=== PATIENT | male | born 1965 | race Two or more races ===

== ENCOUNTER 2018-10-17 14:56 | Inpatient (IN) | payer SELFPAY ==
[~2018-10-17] VITALS: Ht 185.4 cm; Wt 73.9 kg
[2018-10-17 16:40] LABS: PLATELET COUNT 362 x10^3mcL (130-400)
[2018-10-17 16:50] LABS: RED CELL DISTRIBUTION WIDTH 15.3 % (11.5-14.5)
[2018-10-17 17:03] LABS: CALCIUM 8.6 mg/dL (8.5-10.1); CARBON DIOXIDE 28.1 mmol/L (21-32); POTASSIUM SERUM 3.3 mmol/L (3.5-5.1)
[2018-10-17 17:07] LABS: BILIRUBIN TOTAL 2.15 mg/dL (0.20-1.00); TOTAL PROTEIN, SERUM 6.9 g/dL (6.4-8.2)
[2018-10-17 17:11] LABS: ALBUMIN 2.4 g/dL (3.4-5.0)
[2018-10-17 17:14] LABS: BAND NEUTROPHIL 40 % (0-10); BASOPHIL 0 % (0-2); MONOCYTE 4 % (0-7); SEGMENTED NEUTROPHILS 54 % (37-75); rbc morphology (normal/abnorm) ABNORMAL (NORMAL)
[2018-10-17 17:15] LABS: PLATELET MORPHOLOGY PLATELETS NORMAL
[2018-10-17 18:50] LABS: PHOSPHOROUS 4.7 mg/dL (2.5-4.9)
[2018-10-17 18:55] LABS: CHOLESTEROL/HDL RATIO 8.9
[2018-10-17 18:59] LABS: FREE T4 1.93 ng/dL (0.76-1.46); FREE THYROXINE INDEX 3.7 ug/dL (1.4-4.5); T4(THYROXINE) 10.1 ug/dL (4.7-13.3)
[2018-10-17 19:35] LABS: T3 TOTAL 0.77 ng/mL
[2018-10-17 19:54] VITALS: BP 127/76
[2018-10-17 21:46] VITALS: BP 125/75
[2018-10-18 06:22] VITALS: BP 106/68
[2018-10-18 07:22] LABS: PLATELET COUNT 315 x10^3mcL (130-400)
[2018-10-18 07:42] LABS: CALCIUM 7.9 mg/dL (8.5-10.1); CARBON DIOXIDE 25.3 mmol/L (21-32); CREATININE SERUM 2.1 mg/dL (0.7-1.3); POTASSIUM SERUM 3.3 mmol/L (3.5-5.1)
[2018-10-18 08:50] VITALS: BP 98/61
[2018-10-18 08:53] LABS: RED CELL DISTRIBUTION WIDTH 15.5 % (11.5-14.5)
[2018-10-18 11:59] LABS: BAND NEUTROPHIL 7 % (0-10); BASOPHIL 0 % (0-2); MONOCYTE 1 % (0-7); SEGMENTED NEUTROPHILS 87 % (37-75); rbc morphology (normal/abnorm) ABNORMAL (NORMAL)
[2018-10-18 12:00] LABS: PLATELET MORPHOLOGY PLATELETS NORMAL; burr cell (echinocyte) 2+
[2018-10-18 12:58] VITALS: BP 103/63
[2018-10-18 13:20] LABS: UA SPECIFIC GRAVITY >=1.030 (1.005-1.035); microscopic required? YES; urine erythrocyte NEGATIVE (NEGATIVE)
[2018-10-18 13:39] LABS: AMPHETAMINE QUAL UR POSITIVE (See below)
[2018-10-18 16:47] VITALS: BP 113/64
[2018-10-18 22:18] VITALS: BP 132/76
[2018-10-19 05:21] VITALS: BP 140/83
[2018-10-19 06:40] LABS: PLATELET COUNT 318 x10^3mcL (130-400)
[2018-10-19 07:06] LABS: CALCIUM 7.6 mg/dL (8.5-10.1); CARBON DIOXIDE 25.6 mmol/L (21-32); MAGNESIUM 2.1 mg/dL (1.8-2.4); PHOSPHOROUS 3.3 mg/dL (2.5-4.9); POTASSIUM SERUM 3.7 mmol/L (3.5-5.1)
[2018-10-19 07:42] LABS: RED CELL DISTRIBUTION WIDTH 15.8 % (11.5-14.5)
[2018-10-19 09:41] VITALS: BP 148/87
[2018-10-19 11:47] LABS: BAND NEUTROPHIL 5 % (0-10); BASOPHIL 0 % (0-2); MONOCYTE 8 % (0-7); SEGMENTED NEUTROPHILS 81 % (37-75)
[2018-10-19 11:48] LABS: rbc morphology (normal/abnorm) ABNORMAL (NORMAL)
[2018-10-19 11:49] LABS: PLATELET MORPHOLOGY PLATELETS NORMAL
[2018-10-19 13:06] VITALS: BP 145/85
[2018-10-19 17:29] VITALS: BP 153/87
[2018-10-19 21:47] VITALS: BP 167/86
[2018-10-19 23:32] VITALS: BP 154/76
[2018-10-20 06:18] LABS: PLATELET COUNT 336 x10^3mcL (130-400)
[2018-10-20 06:23] VITALS: BP 186/104
[2018-10-20 06:44] LABS: CALCIUM 7.2 mg/dL (8.5-10.1); CARBON DIOXIDE 23.2 mmol/L (21-32); CHLORIDE SERUM 107 mmol/L (98-107); CREATININE SERUM 1.3 mg/dL (0.7-1.3); GFR1 > 60 mL/min; GLUCOSE SERUM 135 mg/dL (74-106); MAGNESIUM 1.8 mg/dL (1.8-2.4); PHOSPHOROUS 3.1 mg/dL (2.5-4.9); POTASSIUM SERUM 3.8 mmol/L (3.5-5.1); SODIUM SERUM 140 mmol/L (136-145)
[2018-10-20 08:56] LABS: RED CELL DISTRIBUTION WIDTH 16.4 % (11.5-14.5)
[2018-10-20 09:48] VITALS: BP 176/97
[2018-10-20 10:54] VITALS: BP 159/87
[2018-10-20 13:33] VITALS: BP 157/87
[2018-10-20 13:54] LABS: BAND NEUTROPHIL 1 % (0-10); BASOPHIL 0 % (0-2); MONOCYTE 3 % (0-7); SEGMENTED NEUTROPHILS 93 % (37-75)
[2018-10-20 13:55] LABS: PLATELET MORPHOLOGY PLATELETS NORMAL; rbc morphology (normal/abnorm) ABNORMAL (NORMAL)
[2018-10-20 16:56] VITALS: BP 159/96
[2018-10-20 21:13] VITALS: BP 144/89
[2018-10-21 05:57] VITALS: BP 158/83
[2018-10-21 06:18] LABS: PLATELET COUNT 341 x10^3mcL (130-400)
[2018-10-21 06:30] LABS: RED CELL DISTRIBUTION WIDTH 15.9 % (11.5-14.5)
[2018-10-21 06:51] LABS: ALKALINE PHOSPHATASE 494 U/L (46-116); ALT/SGPT 18 U/L (16-63); AST/SGOT 44 U/L (15-37); BILIRUBIN DIRECT 1.13 mg/dL (0.0-0.2); BILIRUBIN TOTAL 1.4 mg/dL (0.20-1.00); CALCIUM 7.9 mg/dL (8.5-10.1); CARBON DIOXIDE 23.2 mmol/L (21-32); CHLORIDE SERUM 101 mmol/L (98-107); CREATININE SERUM 1.3 mg/dL (0.7-1.3); GFR1 > 60 mL/min; GLUCOSE SERUM 89 mg/dL (74-106); POTASSIUM SERUM 3.8 mmol/L (3.5-5.1); SODIUM SERUM 133 mmol/L (136-145)
[2018-10-21 07:00] LABS: ALBUMIN 1.2 g/dL (3.4-5.0); TOTAL PROTEIN, SERUM 5.7 g/dL (6.4-8.2)
[2018-10-21 09:41] VITALS: BP 168/90
[2018-10-21 14:34] VITALS: BP 172/95
[2018-10-21 14:41] LABS: MONOCYTE 7 % (0-7); SEGMENTED NEUTROPHILS 82 % (37-75)
[2018-10-21 14:42] LABS: ATYPICAL LYMPH 3 %; BAND NEUTROPHIL 1 % (0-10); PLATELET MORPHOLOGY PLATELETS NORMAL; rbc morphology (normal/abnorm) ABNORMAL (NORMAL)
[2018-10-21 17:10] VITALS: BP 177/101
[2018-10-21 21:41] VITALS: BP 165/95
[2018-10-22 05:34] VITALS: BP 169/95
[2018-10-22 06:43] LABS: PLATELET COUNT 341 x10^3mcL (130-400)
[2018-10-22 06:44] LABS: CALCIUM 7.8 mg/dL (8.5-10.1); CARBON DIOXIDE 24.3 mmol/L (21-32); CHLORIDE SERUM 104 mmol/L (98-107); CREATININE SERUM 1.3 mg/dL (0.7-1.3); GFR1 > 60 mL/min; GLUCOSE SERUM 89 mg/dL (74-106); POTASSIUM SERUM 4.2 mmol/L (3.5-5.1); SODIUM SERUM 138 mmol/L (136-145)
[2018-10-22 06:46] LABS: RED CELL DISTRIBUTION WIDTH 16.3 % (11.5-14.5)
[2018-10-22 10:07] VITALS: BP 166/87
[2018-10-22 11:29] LABS: BAND NEUTROPHIL 9 % (0-10); BASOPHIL 0 % (0-2); MONOCYTE 4 % (0-7); SEGMENTED NEUTROPHILS 74 % (37-75)
[2018-10-22 11:30] LABS: rbc morphology (normal/abnorm) ABNORMAL (NORMAL); target cell (codocyte) 1+; tear drop cell (dacryocyte) 1+
[2018-10-22 11:31] LABS: PLATELET MORPHOLOGY GIANT PLATELET SEEN
[2018-10-22 14:13] VITALS: BP 178/93
[2018-10-22 17:35] VITALS: BP 125/78
[2018-10-22 21:30] VITALS: BP 183/94
[2018-10-22 22:32] VITALS: BP 178/76
[2018-10-23 05:38] VITALS: BP 162/81
[2018-10-23 06:10] LABS: PLATELET COUNT 330 x10^3mcL (130-400)
[2018-10-23 06:18] LABS: CALCIUM 7.5 mg/dL (8.5-10.1); CARBON DIOXIDE 25.1 mmol/L (21-32); CHLORIDE SERUM 101 mmol/L (98-107); CREATININE SERUM 1.2 mg/dL (0.7-1.3); GFR1 > 60 mL/min; GLUCOSE SERUM 89 mg/dL (74-106); POTASSIUM SERUM 4.3 mmol/L (3.5-5.1); SODIUM SERUM 133 mmol/L (136-145)
[2018-10-23 06:22] LABS: RED CELL DISTRIBUTION WIDTH 15.5 % (11.5-14.5); SEGMENTED NEUTROPHILS 70 % (37-75)
[2018-10-23 06:23] LABS: BAND NEUTROPHIL 10 % (0-10)
[2018-10-23 06:24] LABS: rbc morphology (normal/abnorm) NORMAL (NORMAL)
[2018-10-23 08:46] VITALS: BP 166/84
[2018-10-23 12:18] VITALS: BP 149/77
[2018-10-23 17:53] VITALS: BP 168/83
[2018-10-23 21:11] VITALS: BP 167/85
[2018-10-23 23:53] VITALS: BP 158/85
[2018-10-24 05:48] VITALS: BP 164/75
[2018-10-24 08:10] VITALS: BP 156/75
[2018-10-24 10:54] LABS: CALCIUM 7.4 mg/dL (8.5-10.1); CARBON DIOXIDE 27.2 mmol/L (21-32); CHLORIDE SERUM 99 mmol/L (98-107); CREATININE SERUM 1.2 mg/dL (0.7-1.3); GFR1 > 60 mL/min; GLUCOSE SERUM 167 mg/dL (74-106); POTASSIUM SERUM 4.3 mmol/L (3.5-5.1); SODIUM SERUM 131 mmol/L (136-145)
[2018-10-24 11:07] LABS: PLATELET COUNT 348 x10^3mcL (130-400)
[2018-10-24 11:08] LABS: RED CELL DISTRIBUTION WIDTH 15.8 % (11.5-14.5)
[2018-10-24 11:54] VITALS: BP 145/78
[2018-10-24 12:19] LABS: BAND NEUTROPHIL 8 % (0-10); BASOPHIL 0 % (0-2); METAMYELOCTE 1 % (0-2); MONOCYTE 4 % (0-7); PLATELET MORPHOLOGY PLATELETS INCREASED; SEGMENTED NEUTROPHILS 78 % (37-75); rbc morphology (normal/abnorm) ABNORMAL (NORMAL)
[2018-10-24 18:22] VITALS: BP 141/75
[2018-10-24 20:49] VITALS: BP 158/76
[2018-10-25 05:45] VITALS: BP 170/89
[2018-10-25 08:08] LABS: PLATELET COUNT 476 x10^3mcL (130-400); RED CELL DISTRIBUTION WIDTH 15.2 % (11.5-14.5)
[2018-10-25 08:11] VITALS: BP 145/80
[2018-10-25 08:16] LABS: CALCIUM 7.8 mg/dL (8.5-10.1); CARBON DIOXIDE 28.8 mmol/L (21-32); CHLORIDE SERUM 100 mmol/L (98-107); CREATININE SERUM 1.2 mg/dL (0.7-1.3); GFR1 > 60 mL/min; GLUCOSE SERUM 98 mg/dL (74-106); POTASSIUM SERUM 4.1 mmol/L (3.5-5.1); SODIUM SERUM 134 mmol/L (136-145)
[2018-10-25 12:56] VITALS: BP 115/79
[2018-10-25 13:34] LABS: BAND NEUTROPHIL 6 % (0-10); SEGMENTED NEUTROPHILS 76 % (37-75)
[2018-10-25 13:39] LABS: MONOCYTE 5 % (0-7)
[2018-10-25 13:40] LABS: rbc morphology (normal/abnorm) ABNORMAL (NORMAL)
[2018-10-25 13:41] LABS: PLATELET MORPHOLOGY PLATELETS INCREASED
[2018-10-25 17:22] VITALS: BP 121/70
[2018-10-25 20:55] VITALS: BP 125/73
[2018-10-26 05:44] VITALS: BP 148/84
[2018-10-26 13:27] VITALS: BP 149/81
[2018-10-26 16:39] VITALS: BP 135/75
[2018-10-26 20:47] VITALS: BP 141/78
[2018-10-27 05:57] LABS: BASOPHIL % 0.2 % (0-2)
[2018-10-27 06:03] VITALS: BP 145/62
[2018-10-27 06:19] LABS: CALCIUM 7.8 mg/dL (8.5-10.1); CARBON DIOXIDE 26.5 mmol/L (21-32); CHLORIDE SERUM 102 mmol/L (98-107); CREATININE SERUM 1.2 mg/dL (0.7-1.3); GFR1 > 60 mL/min; GLUCOSE SERUM 91 mg/dL (74-106); POTASSIUM SERUM 4.2 mmol/L (3.5-5.1); SODIUM SERUM 136 mmol/L (136-145)
[2018-10-27 09:59] LABS: RED CELL DISTRIBUTION WIDTH 15.7 % (11.5-14.5)
[2018-10-27 10:01] LABS: PLATELET COUNT 839 x10^3mcL (130-400)
[2018-10-27 10:04] VITALS: BP 125/63
[2018-10-27 14:00] VITALS: BP 125/76
[2018-10-27 17:50] VITALS: BP 131/73
[2018-10-27 21:36] VITALS: BP 131/78
[2018-10-28 05:39] VITALS: BP 128/87
[2018-10-28 07:05] LABS: CALCIUM 7.6 mg/dL (8.5-10.1); CARBON DIOXIDE 27.8 mmol/L (21-32); CHLORIDE SERUM 104 mmol/L (98-107); CREATININE SERUM 1.2 mg/dL (0.7-1.3); GFR1 > 60 mL/min; GLUCOSE SERUM 81 mg/dL (74-106); MAGNESIUM 1.9 mg/dL (1.8-2.4); PHOSPHOROUS 3.9 mg/dL (2.5-4.9); POTASSIUM SERUM 4.5 mmol/L (3.5-5.1); SODIUM SERUM 136 mmol/L (136-145)
[2018-10-28 07:08] LABS: BASOPHIL % 0.2 % (0-2)
[2018-10-28 08:19] VITALS: BP 129/65
[2018-10-28 08:23] LABS: RED CELL DISTRIBUTION WIDTH 14.6 % (11.5-14.5)
[2018-10-28 08:48] LABS: PLATELET COUNT 1017 x10^3mcL (130-400)
[2018-10-28 12:34] VITALS: BP 145/79
[2018-10-28 15:50] VITALS: BP 126/61
[2018-10-28 20:33] VITALS: BP 140/79
[2018-10-29 05:45] VITALS: BP 145/78
[2018-10-29 06:26] LABS: BASOPHIL % 0.7 % (0-2)
[2018-10-29 06:36] LABS: CALCIUM 7.5 mg/dL (8.5-10.1); CARBON DIOXIDE 27.5 mmol/L (21-32); CHLORIDE SERUM 102 mmol/L (98-107); CREATININE SERUM 1.2 mg/dL (0.7-1.3); GFR1 > 60 mL/min; GLUCOSE SERUM 74 mg/dL (74-106); POTASSIUM SERUM 4.2 mmol/L (3.5-5.1); SODIUM SERUM 134 mmol/L (136-145)
[2018-10-29 07:24] LABS: RED CELL DISTRIBUTION WIDTH 15.6 % (11.5-14.5)
[2018-10-29 07:26] LABS: PLATELET COUNT 1109 x10^3mcL (130-400)
[2018-10-29 07:52] VITALS: BP 127/75
[2018-10-29 11:29] VITALS: BP 141/79
[2018-10-29 15:32] VITALS: BP 142/81
[2018-10-29 21:11] VITALS: BP 149/84
[2018-10-30 05:45] VITALS: BP 146/74
[2018-10-30 07:14] LABS: CALCIUM 7.8 mg/dL (8.5-10.1); CARBON DIOXIDE 26.3 mmol/L (21-32); CHLORIDE SERUM 101 mmol/L (98-107); GFR1 > 60 mL/min; GLUCOSE SERUM 74 mg/dL (74-106); POTASSIUM SERUM 3.9 mmol/L (3.5-5.1); SODIUM SERUM 134 mmol/L (136-145)
[2018-10-30 07:43] LABS: BASOPHIL % 0.6 % (0-2)
[2018-10-30 07:44] LABS: RED CELL DISTRIBUTION WIDTH 15.7 % (11.5-14.5)
[2018-10-30 07:48] LABS: PLATELET COUNT 1189 x10^3mcL (130-400)
[2018-10-30 10:01] VITALS: BP 145/82
[2018-10-30 16:35] VITALS: BP 143/77
[2018-10-30 21:50] VITALS: BP 136/87
[2018-10-31 05:58] VITALS: BP 153/78
[2018-10-31 07:03] LABS: CALCIUM 7.9 mg/dL (8.5-10.1); CARBON DIOXIDE 26.2 mmol/L (21-32); CHLORIDE SERUM 101 mmol/L (98-107); CREATININE SERUM 1.2 mg/dL (0.7-1.3); GFR1 > 60 mL/min; GLUCOSE SERUM 108 mg/dL (74-106); SODIUM SERUM 133 mmol/L (136-145)
[2018-10-31 08:04] LABS: BASOPHIL % 2.5 % (0-2); RED CELL DISTRIBUTION WIDTH 15.9 % (11.5-14.5)
[2018-10-31 08:05] LABS: PLATELET COUNT 1157 x10^3mcL (130-400)
[2018-10-31 09:11] VITALS: BP 128/77
[2018-10-31 17:56] VITALS: BP 135/76
[2018-10-31 20:47] VITALS: BP 138/74
[2018-11-01 05:27] VITALS: BP 139/65
[2018-11-01 09:58] VITALS: BP 125/65
[2018-11-01 18:36] VITALS: BP 147/75
[2018-11-01 20:57] VITALS: BP 135/73
[2018-11-02 05:28] VITALS: BP 156/92
[2018-11-02 07:18] LABS: CARBON DIOXIDE 27.7 mmol/L (21-32); CHLORIDE SERUM 103 mmol/L (98-107); CREATININE SERUM 1.1 mg/dL (0.7-1.3); GFR1 > 60 mL/min; GLUCOSE SERUM 114 mg/dL (74-106); POTASSIUM SERUM 4.1 mmol/L (3.5-5.1); SODIUM SERUM 137 mmol/L (136-145)
[2018-11-02 07:32] LABS: BASOPHIL % 2.1 % (0-2); PLATELET COUNT 968 x10^3mcL (130-400)
[2018-11-02 09:42] VITALS: BP 147/87
[2018-11-02 16:48] VITALS: BP 138/78
[2018-11-02 20:31] VITALS: BP 147/77
[2018-11-03 05:07] VITALS: BP 146/73
[2018-11-03 06:24] LABS: CALCIUM 7.7 mg/dL (8.5-10.1); CHLORIDE SERUM 104 mmol/L (98-107); GFR1 > 60 mL/min; GLUCOSE SERUM 145 mg/dL (74-106); POTASSIUM SERUM 3.9 mmol/L (3.5-5.1); SODIUM SERUM 137 mmol/L (136-145)
[2018-11-03 07:31] LABS: RED CELL DISTRIBUTION WIDTH 16.2 % (11.5-14.5)
[2018-11-03 07:32] LABS: BASOPHIL % 2.4 % (0-2); PLATELET COUNT 839 x10^3mcL (130-400)
[2018-11-03 09:54] VITALS: BP 152/77
[2018-11-03 18:22] VITALS: BP 142/78
[2018-11-03 21:29] VITALS: BP 142/75
[2018-11-04 04:53] VITALS: BP 154/81
[2018-11-04 06:38] LABS: BASOPHIL % 1.1 % (0-2)
[2018-11-04 06:55] LABS: CALCIUM 7.7 mg/dL (8.5-10.1); CARBON DIOXIDE 26.7 mmol/L (21-32); CHLORIDE SERUM 104 mmol/L (98-107); CREATININE SERUM 1.1 mg/dL (0.7-1.3); GFR1 > 60 mL/min; GLUCOSE SERUM 128 mg/dL (74-106); POTASSIUM SERUM 3.7 mmol/L (3.5-5.1); SODIUM SERUM 137 mmol/L (136-145)
[2018-11-04 08:51] LABS: PLATELET COUNT 714 x10^3mcL (130-400)
[2018-11-04 09:57] VITALS: BP 146/85
[2018-11-04] MEDS ORDERED: METFORMIN HYDR500 M1 PO (11:56)
[2018-11-04] MEDS ORDERED: NOR10 PO (11:56)
[2018-11-04 12:53] VITALS: BP 146/85
[2018-11-04 14:02] VITALS: BP 156/98
[2018-11-04 17:39] VITALS: BP 148/82
== END 2018-11-04 18:47 | disposition home or self-care (01) | DRG 871 ==
LOC: ED 14:56 → DU 18:02 → MU 10-30 11:49
PROVIDERS: Emergency Medicine; Family Medicine; General Practice; Internal Medicine
PROC: 0X9K3ZZ Drainage of Left Hand, Percutaneous Approach (ICD-10-PCS; principal; 2018-10-17)
DX: A41.9 Sepsis, unspecified organism (principal); N17.0 Acute kidney failure with tubular necrosis; E43 Unspecified severe protein-calorie malnutrition; M72.6 Necrotizing fasciitis; E87.1 Hypo-osmolality and hyponatremia; L03.114 Cellulitis of left upper limb; L02.512 Cutaneous abscess of left hand; E11.621 Type 2 diabetes mellitus with foot ulcer; E87.6 Hypokalemia; L97.519 Non-pressure chronic ulcer of other part of right foot with unspecified severity; E11.36 Type 2 diabetes mellitus with diabetic cataract; D64.9 Anemia, unspecified; E11.42 Type 2 diabetes mellitus with diabetic polyneuropathy; N18.9 Chronic kidney disease, unspecified; E11.22 Type 2 diabetes mellitus with diabetic chronic kidney disease; I12.9 Hypertensive chronic kidney disease with stage 1 through stage 4 chronic kidney disease, or unspecified chronic kidney disease; B95.1 Streptococcus, group B, as the cause of diseases classified elsewhere; D47.3 Essential (hemorrhagic) thrombocythemia; W25.XXXA Contact with sharp glass, initial encounter; E11.65 Type 2 diabetes mellitus with hyperglycemia; F15.90 Other stimulant use, unspecified, uncomplicated; Z79.899 Other long term (current) drug therapy; Z23 Encounter for immunization; Y93.89 Activity, other specified; Y92.038 Other place in apartment as the place of occurrence of the external cause; Y99.8 Other external cause status
CPT/HCPCS: 82962; 83880; 84439; 90658; 90732; J0360; J0696; J1644; J1815; J1885; J2020; J2270; J2405; J2540; J2543; J3370; J3480; J3490; J7030; Q0092; Q0163